=== PATIENT | male | born 1970 | race Caucasian/White ===

== ENCOUNTER 2017-06-26 11:27 | Day surgery (SDC) | payer MEDICARE ==
[~2017-06-26 11:27] MED LIST: BUPIVACAINE HCL 0.5 % INJ/PF 30 ML SDV ONE; CEFAZOLIN 2 GM/D5W RTU 2 GM/50 ML RTUPB IV PRN
[2017-06-26 12:25] LABS: HEMATOCRIT 41.4 % (37.9-51.0); HEMOGLOBIN 14.4 g/dL (13.5-17.0); HGB HCT DIFFERENCE 1.8; MEAN CORPUSCULAR HEMOGLOBIN 32.9 pg (27.0-33.4); MEAN CORPUSCULAR HGB CONC 34.6 g/dL (32.0-36.0); MEAN CORPUSCULAR VOLUME 95 fl (80-97); RED BLOOD COUNT 4.36 10^6/uL (4.35-5.55); RED CELL DISTRIBUTION WIDTH 12.5 % (11.5-14.0); WHITE BLOOD COUNT 10.8 10^3/uL (4.0-10.5)
--- NOTE | 2017-06-26 12:25 | RADIOLOGY REPORT (SQ) ---
EXAM DESCRIPTION: CHEST SINGLE VIEW COMPLETED DATE/TIME: 06/26/2017 11:59 am REASON FOR STUDY: PREOP COMPARISON: None. EXAM PARAMETERS: NUMBER OF VIEWS: One view. TECHNIQUE: Single frontal radiographic view of the chest acquired. RADIATION DOSE: NA LIMITATIONS: None. FINDINGS: LUNGS AND PLEURA: 12 mm density over the left mid lung, superimposed on the anterior left 5th rib. This could be a nipple shadow, or pleural calcification. Pulmonary nodule could not be exc luded. Repeat PA film with nipple markers recommended. No fluffy alveolar infiltrates worrisome for edema or pneumonia. No pleural effusion. No pneumothor ax. MEDIASTINUM AND HILAR STRUCTURES: No masses. Contour normal. HEART AND VASCULAR STRUCTURES: Heart normal in size. Normal vasculature. BONES: No acute findings. HARDWARE: None in the chest. OTHER: No other significant finding. IMPRESSION: Left nipple shadow versus pleural calcification versus pulmonary nodule No acute infiltrates. No pleural effusion or pneumothorax. TECHNICAL DOCUMENTATION: JOB ID: [id number]
[2017-06-26 12:35] LABS: ANION GAP 9 (5-19); BLOOD UREA NITROGEN 14 mg/dL (7-20); CARBON DIOXIDE 25 mmol/L (22-30); CHLORIDE 104 mmol/L (98-107); CREATININE RESULT 1.02 mg/dL (0.52-1.25); GLUCOSE 107 mg/dL (75-110); POTASSIUM 4.7 mmol/L (3.6-5.0); SODIUM 138.1 mmol/L (137-145)
[2017-06-26 12:57] LABS: APPEARANCE,URINE CLEAR; BILIRUBIN,URINE NEGATIVE (NEGATIVE); GLUCOSE, URINE NEGATIVE (NEGATIVE); KETONES,URINE NEGATIVE (NEGATIVE); LEUKOCYTE ESTERASE,URINE NEGATIVE (NEGATIVE); NITRITE,URINE NEGATIVE (NEGATIVE); PROTEIN,URINE NEGATIVE (NEGATIVE); URINE SPECIFIC GRAVITY 1.013
[2017-06-26] MEDS ORDERED: ALBUTEROL SULFATE 0.083% NEB 2.5 MG/3 ML AMPUL NEB ONE ×2 (13:13→13:19)
[2017-06-26] MEDS ORDERED: LIDOCAINE 0.5% INJ-PF (5 MG/ML) 50 ML SDV SUBCUT PRN (13:25)
[2017-06-26] MEDS ORDERED: RINGERS SOLUTION,LACTATED 1,000 ML IV PRN (13:26)
[2017-06-26] MEDS ORDERED: FENTANYL CITRATE INJ/PF 100 MCG/2 ML AMPUL ONE ×2 (13:52)
[2017-06-26] MEDS ORDERED: PROPOFOL INJ 200 MG/20 ML VIAL IV ONE (13:53)
[2017-06-26] MEDS ORDERED: MIDAZOLAM 2 MG/2 ML INJ ONE (13:53)
[2017-06-26] MEDS ORDERED: FENTANYL CITRATE INJ/PF 100 MCG/2 ML AMPUL IV PRN (14:39)
[2017-06-26] MEDS ORDERED: PROMETHAZINE HCL INJ 25 MG/1 ML VIAL IV PRN (14:39)
[2017-06-26] MEDS ORDERED: DIPHENHYDRAMINE HCL 50 MG/ML VIAL IV PRN (14:39)
[2017-06-26] MEDS ORDERED: MEPERIDINE HCL/PF INJ 25 MG/1 ML DISP.SYRIN IV PRN (14:39)
[2017-06-26] MEDS ORDERED: MORPHINE SULFATE 10 MG/ML INJ IV PRN (14:39)
--- NOTE | 2017-06-26 15:20 | PDOC DISCHARGE SUMMARY ---
Discharge Summary (SDC) - Discharge Final Diagnosis: Right fourth metacarpal fracture, fourth/fifth CMC dislocation Date of Surgery: 06/26/17 Discharge Date: 06/26/17 Condition: Good Treatment or Instructions: Schedule Follow Up w/ Dr. Ruben Schwartz @ [facility] for Surgery to be seen in 10-14 days or as scheduled [place]: [place]: [place]: Ice and elevate Keep splint clean/dry/intact. If your fingers become numb please unwrap the Nemesio wrap but leave the splint in place, if the sensation does not return within 30 minutes please return to the emergency department. May begin finger range of motion attempting to make full fist. Please use ibuprofen (Motrin or Advil) 600-800 mg every 8 hours as needed for pain or fever. You may also use acetaminophen (Tylenol) 1000 mg every 4-6 hours as needed for pain or fever. Please be aware that many medications contain acetaminophen, do not exceed a total of 1000 mg of acetaminophen every 6 hours. If ibuprofen and acetaminophen are not sufficient for your pain you may take the Percocet. Please be aware that the Percocet does contain Tylenol. Stool softener of choice when on pain medication. Discharge Diet: As Tolerated Respiratory Treatments at Home: Deep Breathing/Coughing Discharge Activity: No Lifting Over 10 Pounds, No Lifting/Push/Pulling Report the Following to Your Physician Immediately: Fever over 101 Degrees, Unusual Bleeding, Redness, Swelling, Warmth, Numbness, Tingling Sensation
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
--- NOTE | 2017-06-26 15:31 | RADIOLOGY REPORT (SQ) ---
EXAM DESCRIPTION: NO CHG FLUORO; HAND RIGHT 3 VIEWS COMPLETED DATE/TIME: 06/26/2017 3:21 pm; 06/26/2017 3:22 pm REASON FOR STUDY: PERC PINNING RIGHT HAND ASSISTED WITH FLUORO IN OR S63.054A DISLOCATION OF OTH CA RPOMETACARPAL JOINT OF RIGHT H Z79.01 ASSISTED (CURRENT) USE OF ANTICOAGULANTS COMPARISON: None. FLUOROSCOPY TIME: 30 seconds 6 images saved to PACS. TECHNIQUE: Intra-operative images acquired during surgical procedure to evaluate progress. NUMBER OF IMAGES: 6 LIMITATIONS: None. FINDINGS: Orthopedic pins overlying fractures of the proximal 4th and 5th metacarpals. Alignment is anatomic. IMPRESSION: IMAGE(S) OBTAINED DURING PROCEDURE. COMMENT: Quality ID [id number]: Final reports for procedures using fluoroscopy that document radiation exp osure indices, or exposure time and number of fluorographic images (if radiation exposure indices are not available) Please consult full operative report of the attending physician for description of the procedure. TECHNICAL DOCUMENTATION: JOB ID: [id number] [employer]- All Rights Reserved
--- NOTE | 2017-06-26 15:31 | RADIOLOGY REPORT (SQ) ---
EXAM DESCRIPTION: NO CHG FLUORO; HAND RIGHT 3 VIEWS COMPLETED DATE/TIME: 06/26/2017 3:21 pm; 06/26/2017 3:22 pm REASON FOR STUDY: PERC PINNING RIGHT HAND ASSISTED WITH FLUORO IN OR S63.054A DISLOCATION OF OTH CA RPOMETACARPAL JOINT OF RIGHT H Z79.01 MCFP (CURRENT) USE OF ANTICOAGULANTS COMPARISON: None. FLUOROSCOPY TIME: 30 seconds 6 images saved to PACS. TECHNIQUE: Intra-operative images acquired during surgical procedure to evaluate progress. NUMBER OF IMAGES: 6 LIMITATIONS: None. FINDINGS: Orthopedic pins overlying fractures of the proximal 4th and 5th metacarpals. Alignment is anatomic. IMPRESSION: IMAGE(S) OBTAINED DURING PROCEDURE. COMMENT: Quality ID [id number]: Final reports for procedures using fluoroscopy that document radiation exp osure indices, or exposure time and number of fluorographic images (if radiation exposure indices are not available) Please consult full operative report of the attending physician for description of the procedure. TECHNICAL DOCUMENTATION: JOB ID: [id number] [employer]- All Rights Reserved
[2017-06-26] MEDS ORDERED: LIDOCAINE 2%/EPINEPHRINE INJ 20 ML VIAL ONE (15:40)
[2017-06-26] MEDS ORDERED: LIDOCAINE 2% INJ (20 MG/ML) 20 ML MDV ONE ×2 (15:40→15:41)
[2017-06-26] MEDS ORDERED: ROPIVACAINE HCL 0.5% INJ/PF (5 MG/1 ML) 30 ML SDV ONE (15:41)
[2017-06-26] MEDS ORDERED: IPRATROPIUM/ALBUTEROL 0.5-2.5 MG/3 ML AMPUL NEB ONE (16:14)
[2017-06-26] MEDS ORDERED: DEXAMETHASONE SOD PHOSPHATE INJ 4 MG/1 ML VIAL ONE (16:48)
[2017-06-26] MEDS ORDERED: KETOROLAC TROMETHAMINE 60 MG/2 ML SDV ONE (16:48)
[2017-06-26] MEDS ORDERED: LIDOCAINE 2% INJ-PF (20 MG/ML) 10 ML AMPUL ONE (16:48)
[2017-06-26] MEDS ORDERED: ONDANSETRON HCL INJ/PF 4 MG/2 ML SDV ONE (16:48)
[2017-06-26 17:59] VITALS: BP 130/81
--- NOTE | 2017-06-26 22:07 | EKG REPORT ---
SEVERITY:- NORMAL ECG - SINUS RHYTHM : Confirmed by: Laura Siegel 26-Jun-2017 22:07:11
== END 2017-06-26 17:50 | disposition home or self-care (01) ==
LOC: OROUT 11:27
PROVIDERS: ATTEND Orthopaedic Surgery
PROC: 0RSS34Z Reposition Right Carpometacarpal Joint with Internal Fixation Device, Percutaneous Approach (ICD-10-PCS; 2017-06-26)
PROC: 0PSP04Z Reposition Right Metacarpal with Internal Fixation Device, Open Approach (ICD-10-PCS; principal; 2017-06-26 13:00)
DX: S63.054A Dislocation of other carpometacarpal joint of right hand, initial encounter (principal); S62.300A Unspecified fracture of second metacarpal bone, right hand, initial encounter for closed fracture; W19.XXXA Unspecified fall, initial encounter; J45.909 Unspecified asthma, uncomplicated; D64.9 Anemia, unspecified; F90.0 Attention-deficit hyperactivity disorder, predominantly inattentive type; I10 Essential (primary) hypertension; F17.210 Nicotine dependence, cigarettes, uncomplicated; Z79.01 Long term (current) use of anticoagulants; Z88.5 Allergy status to narcotic agent
CPT/HCPCS: 36415; 85027; 80048; 81001; 71010; 73130; 93005; 93010; 26615; 26676 ×2; C1769; J2795; J2250; J3490 ×3; J1100; J1885; J3010; J2405; J2704; A9270 ×2; J0690; 01830; J7620

== ENCOUNTER 2017-12-01 09:33 | Day surgery (SDC) | payer MEDICARE, OTHER ==
[2017-11-30 10:56] LABS: APPEARANCE,URINE CLEAR; BILIRUBIN,URINE NEGATIVE (NEGATIVE); COLOR,URINE YELLOW; GLUCOSE, URINE NEGATIVE (NEGATIVE); KETONES,URINE NEGATIVE (NEGATIVE); LEUKOCYTE ESTERASE,URINE NEGATIVE (NEGATIVE); NITRITE,URINE NEGATIVE (NEGATIVE); PROTEIN,URINE NEGATIVE (NEGATIVE); UROBILINOGEN,URINE NEGATIVE mg/dL (<2.0)
[2017-11-30 10:56] LABS: ABSOLUTE BASOPHILS # (AUTO) 0.1 10^3/uL (0.0-0.2); ABSOLUTE EOSINOPHILS # (AUTO) 0.2 10^3/uL (0.0-0.6); ABSOLUTE LYMPHOCYTES (AUTO) 1.8 10^3/uL (0.5-4.7); ABSOLUTE MONOCYTES (AUTO) 0.6 10^3/uL (0.1-1.4); ABSOLUTE NEUT (AUTO) 6.8 10^3/uL (1.7-8.2); BASOPHILS % (AUTO) 0.8 % (0-2); EOSINOPHILS % (AUTO) 2.3 % (0-6); HEMATOCRIT 49.6 % (37.9-51.0); HEMOGLOBIN 17.3 g/dL (13.5-17.0); LYMPHOCYTES % (AUTO) 19.3 % (13-45); MEAN CORPUSCULAR HEMOGLOBIN 32.4 pg (27.0-33.4); MEAN CORPUSCULAR HGB CONC 34.9 g/dL (32.0-36.0); MEAN CORPUSCULAR VOLUME 93 fl (80-97); MONOCYTES % (AUTO) 6.3 % (3-13); PLATELET COUNT 268 10^3/uL (150-450); RED BLOOD COUNT 5.34 10^6/uL (4.35-5.55); RED CELL DISTRIBUTION WIDTH 12.3 % (11.5-14.0); SEGMENTED NEUTROPHILS % (AUTO) 71.3 % (42-78); TOTAL CELLS COUNTED % (AUTO) 100 %; WHITE BLOOD COUNT 9.6 10^3/uL (4.0-10.5)
[2017-11-30 11:24] LABS: ANION GAP 10 (5-19); BLOOD UREA NITROGEN 16 mg/dL (7-20); CALCIUM 10.8 mg/dL (8.4-10.2); CARBON DIOXIDE 26 mmol/L (22-30); CHLORIDE 102 mmol/L (98-107); GLUCOSE 90 mg/dL (75-110); POTASSIUM 4.9 mmol/L (3.6-5.0); SODIUM 138.2 mmol/L (137-145)
--- NOTE | 2017-11-30 12:42 | EKG REPORT ---
SEVERITY:- NORMAL ECG - SINUS RHYTHM : Confirmed by: Laura Siegel 30-Nov-2017 12:41:59
[~2017-12-01 09:33] MED LIST changes: -BUPIVACAINE HCL 0.5 % INJ/PF 30 ML SDV ONE; +LACTATED RINGERS 1000 ML IV PRN; +LIDOCAINE 0.5% INJ-PF (5 MG/ML) 50 ML SDV SUBCUT PRN
[2017-12-01] MEDS ORDERED: BUPIVACAINE HCL 0.5 % INJ/PF 30 ML SDV ONE (10:06)
--- NOTE | 2017-12-01 10:28 | RADIOLOGY REPORT (SQ) ---
EXAM DESCRIPTION: CHEST SINGLE VIEW COMPLETED DATE/TIME: 12/01/2017 10:12 am REASON FOR STUDY: PREOP COMPARISON: 06/26/2017 EXAM PARAMETERS: NUMBER OF VIEWS: One view. TECHNIQUE: Single frontal radiographic view of the chest acquired. RADIATION DOSE: NA LIMITATIONS: None. FINDINGS: LUNGS AND PLEURA: 1.7 cm radiodense nodule projected over the anterior left 5th rib. This could represent a pulmonary nodule or pleural calcification. Lungs are otherwise well inflated and clear. No pleural effusion. No pneumothorax. MEDIASTINUM AND HILAR STRUCTURES: No masses. Contour normal. HEART AND VASCULAR STRUCTURES: Heart normal in size. Normal vasculature. BONES: No acute findings. HARDWARE: Lower cervical fusion hardware OTHER: No other significant finding. IMPRESSION: No acute infiltrates. Pulmonary nodule versus pleural calcifications left side, similar compared to 06/26/2017 TECHNICAL DOCUMENTATION: JOB ID: [id number] [employer]- All Rights Reserved
[2017-12-01] MEDS ORDERED: LIDOCAINE 2% INJ-PF (20 MG/ML) 10 ML AMPUL ONE (10:37)
[2017-12-01] MEDS ORDERED: PROPOFOL INJ 200 MG/20 ML VIAL IV ONE (10:38)
[2017-12-01] MEDS ORDERED: MIDAZOLAM 2 MG/2 ML INJ ONE (10:38)
[2017-12-01] MEDS ORDERED: HYDROMORPHONE HCL INJ/PF 2 MG/ML AMPULE ONE ×2 (10:38→14:17)
[2017-12-01] MEDS ORDERED: FENTANYL CITRATE INJ/PF 100 MCG/2 ML AMPUL ONE ×2 (10:38)
[2017-12-01] MEDS ORDERED: ACETAMINOPHEN 100 ML IV ONE (10:39)
[2017-12-01] MEDS ORDERED: ONDANSETRON HCL INJ/PF 4 MG/2 ML SDV ONE (10:39)
[2017-12-01] MEDS ORDERED: MEPERIDINE HCL/PF INJ 25 MG/1 ML DISP.SYRIN IV PRN (10:59)
[2017-12-01] MEDS ORDERED: PROMETHAZINE HCL INJ 25 MG/1 ML VIAL IV PRN ×2 (10:59)
[2017-12-01] MEDS ORDERED: DIPHENHYDRAMINE HCL 50 MG/ML VIAL IV PRN (10:59)
[2017-12-01] MEDS ORDERED: FENTANYL CITRATE INJ/PF 100 MCG/2 ML AMPUL IV PRN ×3 (10:59)
[2017-12-01] MEDS ORDERED: ONDANSETRON HCL INJ/PF 4 MG/2 ML SDV IV PRN ×2 (10:59→13:58)
--- NOTE | 2017-12-01 13:33 | PDOC DISCHARGE SUMMARY ---
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 Ruben Schwartz @ [facility] for Surgery to be seen in 10-14 days or as scheduled [place]: [place]: [place]: Ice and elevate Keep splint clean/dry/intact. If your fingers become numb please unwrap the Nemesio wrap but leave the splint in place, if the sensation does not return within 30 minutes please return to the emergency department. May begin finger range of motion attempting to make full fist. Please use ibuprofen (Motrin or Advil) 600-800 mg every 8 hours as needed for pain or fever. You may also use acetaminophen (Tylenol) 1000 mg every 4-6 hours as needed for pain or fever. Please be aware that many medications contain acetaminophen, do not exceed a total of 1000 mg of acetaminophen every 6 hours. If ibuprofen and acetaminophen are not sufficient for your pain you may take the Percocet. Please be aware that the Percocet does contain Tylenol. Stool softener of choice when on pain medication. Prescriptions: Ketorolac Tromethamine [Toradol 10 mg Tablet] 10 mg PO Q8HP PRN #10 tablet PRN Reason: Hydromorphone HCl [Dilaudid 2 mg Tablet] 2 mg PO Q8 #15 tablet Tapentadol HCl [Nucynta] 50 mg PO Q6 #30 tablet Discharge Diet: As Tolerated Respiratory Treatments at Home: Deep Breathing/Coughing, Incentive Spirometer Discharge Activity: No Lifting Over 10 Pounds, No Lifting/Push/Pulling Report the Following to Your Physician Immediately: Fever over 101 Degrees, Unusual Bleeding, Redness, Swelling, Warmth, Increased Soreness
--- NOTE | 2017-12-01 13:45 | Operative Report ---
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 Painful hardware left wrist POSTOPERATIVE DIAGNOSIS: Same OPERATION: 1. Removal of hardware. 2. Scaphoidectomy. 3. Revision midcarpal arthrodesis with use of autogenous distal radius bone graft. 4. PIN neurectomy SURGEON: JOSÉ MIGUEL EDWARDS ANESTHESIA: GA COMPLICATIONS: None ESTIMATED BLOOD LOSS: 35cc PROCEDURE: Indication for above procedure: 47-year-old male with long-standing history of wrist discomfort. Patient underwent 4 corner arthrodesis years ago. Since that surgery he had some initial improvement but over time the pain is worsened. Radiographs and CT scan were done demonstrating evidence of nonunion with hardware failure. At that point I discussed treatment options including continued observation versus operative intervention which would include hardware removal with revision midcarpal arthrodesis versus total wrist arthrodesis. Risks and benefits were explained patient verbalized understanding consented for the procedure. Procedure In Detail: Patient was seen and evaluated in the preoperative holding area. The LEFT upper extremity was initialized and marked. Patient received 2g of Ancef IV for bacterial prophylaxis. Patient was taken back to the operative room where transferred to the operative table and placed under general anesthesia. Once they were adequately anesthetized a nonsterile tourniquet was placed on the upper extremity. A surgical team debriefing was performed ensuring all instrumentation was available, the surgical procedure was discussed with possible concerns reviewed. The upper extremity was prepped with chlorhexidine and alcohol and draped in a sterile fashion. A timeout was done identifying correct patient, procedure and extremity everyone in attendance agree with this and verbalized no concerns. The extremity was exsanguinated the tourniquet was inflated to 250 mmHg. Skin incision was made longitudinally centered over Prisca tubercle given patient's previous incision ulnarly. Blunt dissection was performed. Branches of the superficial radial nerve were identified and retracted with the skin flap. Any peripheral bleeding was collided with bipolar cautery. I then opened the third dorsal compartment and transposed the EPL in a radial direction. The fourth dorsal compartment was then elevated off the distal radius and the wrist capsule was identified. A Ackerman type capsulotomy was then made ulnarly based. The posterior interosseous nerve was identified within the fourth dorsal compartment and 1.5 cm was resected. I then turned my attention to exposure of the hardware. The capsule was carefully elevated and the previous hardware was identified. The screws and circular plate removed. The holes were carefully curetted. There was melanosis of the soft tissues which was also excised. 2 screws were found to be broken and one had to be retained given its location within the bone. Once the plate was removed in its entirety there is no evidence of union at the 4 corner fusion site. I then turned my attention to removal of the scaphoid. The RSC ligament was protected and the scaphoid was removed. A shell of the bone volarly remained intact to the STT ligaments. The capitate had a large intracarpal cyst which was curetted and sent for micro given revision setting. There is no evidence of purulence. Once the capitate was curetted I then inspected the radiocarpal articulation which demonstrated no evidence of degenerative changes and smooth chondral surfaces. Given the intact cartilage of the radiocarpal articulation decision was made to proceed with 4 corner fusion which if this continued to fail I would consider total wrist fusion in the future. With a sagittal saw I prepared a dorsal window for removal of autogenous distal radius bone graft. The vas was removed and placed on the back table and any remaining normal bone of the scaphoid was used. I then prepared the articular surfaces of the 4 corner fusion. Given the bone loss of the capitate I decided diffusion portion of the hamate to the lunate and a portion of the capitate to lunate to increase my fusion surface. The wound was copiously irrigated with normal saline. The intraosseous defect within the capitate was packed with autogenous bone. Bone was then removed along the undersurface of the hamate and capitate along with the lunate until normal-appearing cancellus bone was encountered. Once I was satisfied with my fusion surfaces the wrist was fully flexed and a K wire was placed across the radiocarpal joint into the capitate correcting its alignment. I then placed the capitate/hamate onto the lunate and continue to advance my K wire obtaining provisional fixation. The arthrodesis surface was then packed with the autogenous distal radius bone graft and a portion of Vitoss bone substitute. I then measured the appropriate size BME rafy decided a 15 x 12 and a 13 x 12 would be utilized. The appropriate size drill guide was then chosen and the rafy are placed one from the lunate into the capitate and a second one from the lunate into the hamate. This provided excellent compression at the arthrodesis site. Any remaining defects were filled with autogenous bone graft. The bone graft harvest site was then filled with Vitoss. Tourniquet was then deflated. Any peripheral bleeding was coagulated bipolar cautery until controlled and wound was dry. The capsule was closed with interrupted 3-0 Ethibond suture. Subcutaneous tissues were closed with 3-0 Vicryl suture. Skin was closed with interrupted 3-0 nylon suture. 20 cc of 0.5 % Marcaine without epinephrine was injected for postoperative pain control. Patient was placed in a plaster splint. Sponge counts, instrument counts, needle counts counts were correct. Patient was then awoken from anesthesia. Transferred from the operating room table to the operating room stretcher. There was no intraoperative complications patient tolerated procedure well stable to PACU. Postoperative plan: Patient will follow-up the office in 2 weeks at which point we will obtain radiographs and patient will be transitioned to a short arm cast until union present.
[2017-12-01] MEDS: FENTANYL CITRATE INJ/PF 100 MCG/2 ML AMPUL ONE ×2 (13:55→14:00)
[2017-12-01] MEDS ORDERED: HYDROMORPHONE HCL INJ/PF 2 MG/ML AMPULE IV PRN (13:58)
[2017-12-01] MEDS ORDERED: KETOROLAC TROMETHAMINE INJ/PF 30 MG/1 ML SDV IV PRN (13:58)
[2017-12-01] MEDS ORDERED: OXYCODONE-ACETAMINOPHEN 5-325 MG TABLET PO PRN (13:58)
--- NOTE | 2017-12-01 14:58 | RADIOLOGY REPORT (SQ) ---
EXAM DESCRIPTION: WRIST LEFT 2 VIEWS COMPLETED DATE/TIME: 12/01/2017 1:55 pm REASON FOR STUDY: LT WRIST HARDWARE REMOVAL LIMITED FUSSION S62.012K DISP FX OF DIST POLE OF NAVIC BONE OF L WRS, 7THK COMPARISON: None. NUMBER OF VIEWS: Three views. TECHNIQUE: Serial intraoperative images were obtained. LIMITATIONS: None. FINDINGS: Serial intraoperative films demonstrate near-complete resection of the carpal navicular an d a portion of the carpal lunate with bone fragments noted in the region. There is evidence of a sta ple extending from remaining carpal lunate to carpal capitate and from carpal triquetrum to carpal h amate. A screw is noted with been carpal hamate. IMPRESSION: Status post surgical excision of carpal navicula and portion of carpal lunate. Status p ost stapling of mid proximal and distal carpal bones. TECHNICAL DOCUMENTATION: JOB ID: [id number] [employer]- All Rights Reserved
--- NOTE | 2017-12-01 15:05 | RADIOLOGY REPORT (SQ) ---
EXAM DESCRIPTION: NO CHG FLUORO COMPLETED DATE/TIME: 12/01/2017 1:55 pm REASON FOR STUDY: LT WRIST HARDWARE REMOVAL LIMITED FUSSION COMPARISON: None. FINDINGS: Fluoro time 55 seconds, please see corresponding operative report. TECHNICAL DOCUMENTATION: JOB ID: [id number]
[2017-12-01] MEDS ORDERED: FENTANYL CITRATE INJ/PF 100 MCG/2 ML AMPUL IV ONE (15:31)
[2017-12-01 17:55] VITALS: BP 135/105
== END 2017-12-01 17:40 | disposition home or self-care (01) ==
LOC: OROUT 09:33
PROVIDERS: ATTEND Orthopaedic Surgery
PROC: 01B64ZZ Excision of Radial Nerve, Percutaneous Endoscopic Approach (ICD-10-PCS; 2017-12-01)
PROC: 0RPP04Z Removal of Internal Fixation Device from Left Wrist Joint, Open Approach (ICD-10-PCS; principal; 2017-12-01 11:30)
DX: S62.012K Displaced fracture of distal pole of navicular [scaphoid] bone of left wrist, subsequent encounter for fracture with nonunion (principal); X58.XXXD Exposure to other specified factors, subsequent encounter; D64.9 Anemia, unspecified; J45.909 Unspecified asthma, uncomplicated; M19.90 Unspecified osteoarthritis, unspecified site; F17.210 Nicotine dependence, cigarettes, uncomplicated; I10 Essential (primary) hypertension; Z79.51 Long term (current) use of inhaled steroids; Z79.899 Other long term (current) drug therapy; Z88.5 Allergy status to narcotic agent
CPT/HCPCS: 20680; 64772; 25810; 93005; 36415; 87070; 87205; 85025; 87075; 80048; 81001; 71045; 73100; 93010; J2250; J3490 ×2; J3010; A9270; J1170; J2405; J2704; J0690; J0131; 01830